=== PATIENT | male | born 1940 | race Caucasian/White ===

== ENCOUNTER 2021-03-07 11:08 | Emergency (ER) | payer OTHER ==
--- OUTSIDE RECORDS SUMMARY | 2021-03-07 11:12 | XMS REPORT | Continuity of Care Document ---
:1940 Author Organization [facility] t Address [address] [place] [address] Dr. [address] [place] [address] Care Team Providers Name Role Phone Rajiv BHARDWAJ, Fredrick Primary Care Physician DARYN DUKE Attending Clinician Unavailable Therapist, Respiratory Attending Clinician Unavailable Duke Duckworth MD Attending Clinician Duke DUCKWORTH Attending Clinician Unavailable Only, Test Attending Clinician Unavailable Apple BHARDWAJ Attending Clinician APPLE Attending Clinician Unavailable Doctor Unassigned, Name Attending Clinician Unavailable Rajiv BHARDWAJ, Fredrick Attending Clinician Pcp, Does Not Have A Attending Clinician Dominic BHARDWAJ Attending Clinician Daryn Duke MD Attending Clinician Pob, Lab Main Attending Clinician Unavailable VIVIANE Attending Clinician Unavailable IVANNA Attending Clinician Unavailable MD SAHARA GONCALVES Attending Clinician Unavailable DARYN DUKE Admitting Clinician Unavailable Daryn Duke MD Admitting Clinician IVANNA Admitting Clinician Unavailable MD SAHARA GONCALVES Admitting Clinician Unavailable Payers Payer Name Policy Type Policy Number Effective Date Expiration Date S cristian [facility] MEDICARE [id number] 2012 ERS 00:00:00 Problems This patient has no known problems. Allergies, Adverse Reactions, Alerts Allergy Allergy Status Severity Reaction(s) Onset Inactive Treating Comm ents Source Name Type Date Date Clinician NO KNOWN Drug Active Univers ALLERGIE Class ity of S [facility] Social History Social Habit Start Date Stop Date Quantity Comments Source Exposure to Not sure University of SARS-CoV-2 [place] [facility] (event) Branch Tobacco use and 2019-11-10 2019-11-10 Never used Universit y of exposure 00:00:00 00:00:00 [facility] Tobacco Comment 2019-11-10 2019-11-10 Quit 40 years Univer sity of 00:00:00 00:00:00 ago [facility] Sex Assigned At [birth year] Universit y of 00:00:00 00:00:00 [facility] Smoking Status Start Date Stop Date Source Former smoker 2019-11-10 00:00:00 2019-11-10 00:00:00 Universi ty [facility] Medications Ordered Filled Start Stop Current Ordering Indication Dosage Frequency Signature Comments Components Source Medication Medication Date Date Medication? Clinician (SIG) Name Name rivaroxaban 2019-02 Yes 20mg Take 20 mg Univers (XARELTO) 2-24 by mouth. ity o f 20 mg 10:12: [place] tablet 09 Medical Branch atorvastati 2019-02 Yes 40mg Take 40 mg Univers n (LIPITOR) 2-24 by mouth ity of 40 mg 10:12: at [place] tablet 09 bedtime. Medical Branch tamsulosin 2019-02 Yes .4mg Take 0.4 Uni vers (FLOMAX) 2-24 mg by ity of 0.4 mg 24 10:12: mouth [place] hr capsule 09 daily. Medical Branch finasteride 2019-02 Yes 5mg Take 5 mg U nivers (PROSCAR) 5 2-24 by mouth ity of mg tablet 10:12: daily. [place] 09 Medical Branch fluticasone 2019-02 Yes 1{spray Use 1 Un daniel 50 2-24 } Arpin in ity of mcg/actuati 10:12: each [place] on nasal 09 nostril Medical spray daily. Branch apixaban 2019-02 Yes 5mg Take 5 mg Univ ers (ELIQUIS) 5 2-24 by mouth 2 it y of mg tablet 10:12: (two) [place] 09 times Medical daily. Branch amiodarone 2019-02 Yes 100mg Take 100 Un daniel HCl 2-24 mg by ity of (AMIODARONE 10:12: mouth [place] ORAL) 09 daily. Medical Branch atorvastati 2019-02 Yes 40mg Take 40 mg Univers n (LIPITOR) 2-24 by mouth ity of 40 mg 10:12: at [place] tablet 09 bedtime. Medical Branch lisinopril 2019-02 Yes 40mg Take 40 mg U nivers (PRINIVIL,Z 2-24 by mouth ity of ESTRIL) 40 10:12: daily. [place] mg tablet 09 Medical Branch omeprazole 2019-02 Yes 20mg Take 20 mg U nivers (PRILOSEC) 2-24 by mouth ity o f 20 mg 10:12: daily. [place] capsule 09 Medical Branch loratadine 2019-02 Yes Take by Uni vers (CLARITIN 2-24 mouth. ity of LIQUI-GEL) 10:12: [place] 10 mg 09 Medical capsule Branch sotalol 2019-02 Yes 80mg Take 80 mg Univ ers (BETAPACE) 2-24 by mouth ity o f 80 mg 10:12: every 12 [place] tablet 09 (twelve) Medical hours. Branch rivaroxaban 2019-02 Yes 20mg Take 20 mg Univers (XARELTO) 2-24 by mouth. ity o f 20 mg 10:12: [place] tablet 09 Medical Branch atorvastati 2019-02 Yes 40mg Take 40 mg Univers n (LIPITOR) 2-24 by mouth ity of 40 mg 10:12: at [place] tablet 09 bedtime. Medical Branch tamsulosin 2019-02 Yes .4mg Take 0.4 Uni vers (FLOMAX) 2-24 mg by ity of 0.4 mg 24 10:12: mouth [place] hr capsule 09 daily. Medical Branch finasteride 2019-02 Yes 5mg Take 5 mg U nivers (PROSCAR) 5 2-24 by mouth ity of mg tablet 10:12: daily. [place] 09 Medical Branch tamsulosin 2019-02 Yes .4mg Take 0.4 Uni vers (FLOMAX) 2-24 mg by ity of 0.4 mg 24 10:12: mouth [place] hr capsule 09 daily. Medical Branch fluticasone 2019- Yes 1{spray Use 1 Un daniel 50 2-24 } Arpin in ity of mcg/actuati 10:12: each [place] on nasal 09 nostril Medical spray daily. Branch apixaban 2019-02 Yes 5mg Take 5 mg Univ ers (ELIQUIS) 5 2-24 by mouth 2 it y of mg tablet 10:12: (two) [place] 09 times Medical daily. Branch amiodarone 2019-02 Yes 100mg Take 100 Un daniel HCl 2-24 mg by ity of (AMIODARONE 10:12: mouth [place] ORAL) 09 daily. Medical Branch finasteride 2019-02 Yes 5mg Take 5 mg U nivers (PROSCAR) 5 2-24 by mouth ity of mg tablet 10:12: daily. Medical Branch lisinopril 2019-02 Yes 40mg Take 40 mg U nivers (PRINIVIL,Z 2-24 by mouth ity of ESTRIL) 40 10:12: daily. [place] mg tablet 09 Medical Branch omeprazole 2019-02 Yes 20mg Take 20 mg U nivers (PRILOSEC) 2-24 by mouth ity o f 20 mg 10:12: daily. [place] capsule 09 Medical Branch loratadine 2019-02 Yes Take by Uni vers (CLARITIN 2-24 mouth. ity of LIQUI-GEL) 10:12: [place] 10 mg 09 Medical capsule Branch sotalol 2019-02 Yes 80mg Take 80 mg Univ ers (BETAPACE) 2-24 by mouth ity o f 80 mg 10:12: every 12 [place] tablet 09 (twelve) Medical hours. Branch rivaroxaban 2019-02 Yes 20mg Take 20 mg Univers (XARELTO) 2-24 by mouth. ity o f 20 mg 10:12: [place] tablet 09 Medical Branch atorvastati 2019-02 Yes 40mg Take 40 mg Univers n (LIPITOR) 2-24 by mouth ity of 40 mg 10:12: at [place] tablet 09 bedtime. Medical Branch tamsulosin 2019-02 Yes .4mg Take 0.4 Uni vers (FLOMAX) 2-24 mg by ity of 0.4 mg 24 10:12: mouth [place] hr capsule 09 daily. Medical Branch finasteride 2019-02 Yes 5mg Take 5 mg U nivers (PROSCAR) 5 2-24 by mouth ity of mg tablet 10:12: daily. Medical Branch fluticasone 2019-02 Yes 1{spray Use 1 Un daniel 50 2-24 } Arpin in ity of mcg/actuati 10:12: each [place] on nasal 09 nostril Medical spray daily. Branch fluticasone 2019-02 Yes 1{spray Use 1 Un daniel 50 2-24 } [place] in ity of mcg/actuati 10:12: each [place] on nasal 09 nostril Medical spray daily. Branch apixaban 2019- Yes 5mg Take 5 mg Univ ers (ELIQUIS) 5 2-24 by mouth 2 it y of mg tablet 10:12: (two) [place] 09 times Medical daily. Branch amiodarone 2019-02 Yes 100mg Take 100 Un daniel HCl 2-24 mg by ity of (AMIODARONE 10:12: mouth [place] ORAL) 09 daily. Medical Branch apixaban 2019-02 Yes 5mg Take 5 mg Univ ers (ELIQUIS) 5 2-24 by mouth 2 it y of mg tablet 10:12: (two) [place] times Medical daily. Branch amiodarone 2019-02 Yes 100mg Take 100 Un daniel HCl 2-24 mg by ity of (AMIODARONE 10:12: mouth [place] ORAL) 09 daily. Medical Branch lisinopril 2019-02 Yes 40mg Take 40 mg U nivers (PRINIVIL,Z 2-24 by mouth ity of ESTRIL) 40 10:12: daily. [place] mg tablet Medical Branch omeprazole 2019-02 Yes 20mg Take 20 mg U nivers (PRILOSEC) 2-24 by mouth ity o f 20 mg 10:12: daily. [place] capsule Medical Branch lisinopril 2019-02 Yes 40mg Take 40 mg U nivers (PRINIVIL,Z 2-24 by mouth ity of ESTRIL) 40 10:12: daily. [place] mg tablet 09 Medical Branch omeprazole 2019- Yes 20mg Take 20 mg U nivers (PRILOSEC) 2-24 by mouth ity o f 20 mg 10:12: daily. [place] capsule 09 Medical Branch loratadine 2019- Yes Take by Uni vers (CLARITIN 2-24 mouth. ity of LIQUI-GEL) 10:12: [place] 10 mg 09 Medical capsule Branch sotalol 2019- Yes 80mg Take 80 mg Univ ers (BETAPACE) 2-24 by mouth ity o f 80 mg 10:12: every 12 [place] tablet 09 (twelve) Medical hours. Branch rivaroxaban 2019- Yes 20mg Take 20 mg Univers (XARELTO) 2-24 by mouth. ity o f 20 mg 10:12: [place] tablet 09 Medical Branch loratadine 2019- Yes Take by Uni vers (CLARITIN 2-24 mouth. ity of LIQUI-GEL) 10:12: [place] 10 mg 09 Medical capsule Branch atorvastati 2019-02 Yes 40mg Take 40 mg Univers n (LIPITOR) 2-24 by mouth ity of 40 mg 10:12: at [place] tablet 09 bedtime. Medical Branch tamsulosin 2019-02 Yes .4mg Take 0.4 Uni vers (FLOMAX) 2-24 mg by ity of 0.4 mg 24 10:12: mouth [place] hr capsule 09 daily. Medical Branch finasteride 2019-02 Yes 5mg Take 5 mg U nivers (PROSCAR) 5 2-24 by mouth ity of mg tablet 10:12: daily. [place] 09 Medical Branch fluticasone 2019- Yes 1{spray Use 1 Un daniel 50 2-24 } Arpin in ity of mcg/actuati 10:12: each [place] on nasal 09 nostril Medical spray daily. Branch apixaban 2019-02 Yes 5mg Take 5 mg Univ ers (ELIQUIS) 5 2-24 by mouth 2 it y of mg tablet 10:12: (two) [place] 09 times Medical daily. Branch amiodarone 2019-02 Yes 100mg Take 100 Un daniel HCl 2-24 mg by ity of (AMIODARONE 10:12: mouth [place] ORAL) 09 daily. Medical Branch sotalol 2019-02 Yes 80mg Take 80 mg Univ ers (BETAPACE) 2-24 by mouth ity o f 80 mg 10:12: every 12 [place] tablet 09 (twelve) Medical hours. Branch lisinopril 2019-02 Yes 40mg Take 40 mg U nivers (PRINIVIL,Z 2-24 by mouth ity of ESTRIL) 40 10:12: daily. [place] mg tablet 09 Medical Branch omeprazole 2019-02 Yes 20mg Take 20 mg U nivers (PRILOSEC) 2-24 by mouth ity o f 20 mg 10:12: daily. [place] capsule 09 Medical Branch loratadine 2019-02 Yes Take by Uni vers (CLARITIN 2-24 mouth. ity of LIQUI-GEL) 10:12: [place] 10 mg 09 Medical capsule Branch sotalol 2019-02 Yes 80mg Take 80 mg Univ ers (BETAPACE) 2-24 by mouth ity o f 80 mg 10:12: every 12 [place] tablet 09 (twelve) Medical hours. Branch rivaroxaban 2019-02 Yes 20mg Take 20 mg Univers (XARELTO) 2-24 by mouth. ity o f 20 mg 10:12: [place] tablet 09 Medical Branch cyclobenzap 2016-0 Yes 5mg Take 1 Tab Univers rine 3-26 by mouth 3 ity of (FLEXERIL) 00:00: (three) [place] 5 [place] tablet 00 times Medical daily. Branch traMADOL 2015-0 Yes 50mg Take 1 Tab Uni vers (ULTRAM) 50 3-26 by mouth ity of mg tablet 00:00: every 6 [place] 00 (six) Medical hours as Branch needed for Pain (scale 4-6). John Child PA-C / Neville Hooker MD MAKAYLA# [id number] DPS# [id number] x Lic.# [id number] NPI# [id number] cyclobenzap 2016-0 Yes 5mg Take 1 Tab Univers rine 3-26 by mouth 3 ity of (FLEXERIL) 00:00: (three[place] 5 [place] tablet 00 times Medical daily. Branch traMADOL 2016-0 Yes 50mg Take 1 Tab Uni vers (ULTRAM) 50 3-26 by mouth ity of mg tablet 00:00: every 6 [place] 00 (six) Medical hours as Branch needed for Pain (scale 4-6). John Child PA-C / Neville Hooker MD MAKAYLA# [id number] DPS# [id number] x Lic.# [id number] NPI# [id number] cyclobenzap 2016-0 Yes 5mg Take 1 Tab Univers rine 3-26 by mouth 3 ity of (FLEXERIL) 00:00: (three) [place] 5 [place] tablet 00 times Medical daily. Branch traMADOL 2016-0 Yes 50mg Take 1 Tab Uni vers (ULTRAM) 50 3-26 by mouth ity of mg tablet 00:00: every 6 [place] 00 (six) Medical hours as Branch needed for Pain (scale 4-6). John Child PA-C / Neville Hooker MD MAKAYLA# [id number] DPS# [id number] x Lic.# [id number] NPI# [id number] cyclobenzap 2016-0 Yes 5mg Take 1 Tab Univers rine 3-26 by mouth 3 ity of (FLEXERIL) 00:00: (three[place] 5 [place] tablet 00 times Medical daily. Branch traMADOL 2016-0 Yes 50mg Take 1 Tab Uni vers (ULTRAM) 50 3-26 by mouth ity of mg tablet 00:00: every 6 [place] [address] (six) Medical hours as Branch needed for Pain (scale 4-6). John Child PA-C / Neville Hooker MD MAKAYLA# [id number] DPS# [id number] x Lic.# [id number] NPI# [id number] cyclobenzap 2016-0 Yes 5mg Take 1 Tab Univers rine 3-26 by mouth 3 ity of (FLEXERIL) 00:00: (three[place] 5 [place] tablet 00 times Medical daily. Branch traMADOL 2016-0 Yes 50mg Take 1 Tab Uni vers (ULTRAM) 50 3-26 by mouth ity of mg tablet 00:00: every 6 [place] [address] (six) Medical hours as Branch needed for Pain (scale 4-6). John Child PA-C / Neville Hooker MD MAKAYLA# [id number] DPS# [id number] x Lic.# [id number] NPI# [id number] Procedures Procedure Date / Time Performed Performing Clinician [facility] e ASSIGNMENT OF BENEFITS 2021-01-06 15:41:01 Doctor Unassigned, No [facility] Encounters Start End Encounter Admission Attending Care Care Encounter Source Date/Time Date/Time Type Type Clinicians Facility Department ID 2020-12-04 Emergency [facility] [id number] Univers 13:06:08 ity [facility] 2020-12-03 Outpatient R SEBASTIAN, [facility] BRAD [id number] Univers 23:09:28 SOL [facility] 2020-12-03 Outpatient SEBASTIAN, [facility] [id number] Univers 18:39:34 SOL [facility] 2021-01-10 2021-01-10 Core Cleaner Therapist, Murphy Respiratory [facility] 1.2.840.114 [id number] Univers 12:31:22 14:01:22 Visit Rohit Duckworth 350.1.13. 10 ity of [place] [id number] [facility] [id number] [facility] 083 Branch 2021-01-10 2021-01-10 Outpatient R GUCCI [facility] [id number] Univers 12:30:00 12:30:00 ROHIT ity [facility] 2021-01-10 2021-01-10 Outpatient R [facility] [id number] Univers 12:30:00 12:30:00 [id number] ity [facility] 2021-01-06 2021-01-06 Laboratory Only, Adc Test [facility] 1.2.840. [id number] Univers 09:40:01 09:55:01 Only Sol Bullock [id number] ity of [place] [id number] [facility] [id number] [facility] 353 Branch 2021-01-06 2021-01-06 Outpatient R [facility] [id number] Univers 09:30:00 09:30:00 [id number] ity [facility] 2021-01-06 2021-01-06 [id number] Univers 09:30:00 09:30:00 SOL [facility] 2021-01-06 2021-01-06 Orders Doctor NOLA [id number] [id number] Univers 00:00:00 00:00:00 Only Unassigned, ROGELIO [id number] ity of [place] [facility] 4.2.7.2.686 Lenin as [phone] [facility] 009 Branch 2020-12-23 2020-12-23 Telephone [facility] 1.2.840.114 [id number] Univers 00:00:00 00:00:00 Wondiful A LUCY [id number] ity [place] 4[place].2.686 [place] [id number] Ak dical NAL 085 [facility] 2020-10-27 2020-10-27 Telephone Eduardo [facility] [id number] Univers 00:00:00 00:00:00 Patient Lucy [id number] i ty of Does Not [place] 4.2.7.2.686 [place] as Have A Professio [id number] Ak dical [address] 2020-01-29 2020-01-29 Emergency [facility] [id number] 09:43:00 12:01:00 Raj Valderrama 350.1.13.10 [place] [id number] [place] [id number] 2019-11-27 2019-11-27 [facility] 1.2.840.114 [id number] 07:45:00 10:36:00 Encounter Sol Valderrama [id number] Daryn Braden [id number] Surgical [id number] [place] [address] 2019-11-26 2019-11-26 Outpatient R [facility] [id number] [facility] 15:30:00 15:30:[id number] [place] [address] 2019-11-26 2019-11-26 Outpatient R [facility] [id number] [facility] 15:30:00 15:30:00 [facility] 2019-11-26 2019-11-26 Laboratory Only, [facility] 1.2.840.114 [id number] 09:42:34 09:57:34 Only Test Lucy 350.1.13.10 [place] 4.2.7.2.686 [place] [id number] 2019-11-13 2019-11-13 [facility] 1.2.840.114 [id number] 07:14:00 09:30:00 Encounter Sol Valderrama 350.1.13.10 Daryn Braden 4.2.7.2.686 Surgical [id number] [place] 07 2019-11-12 2019-11-12 Laboratory Only, [facility] 1.2.840.114 [id number] 09:36:07 09:51:07 Only Test Lucy 350.1.13.10 [place] 4.2.7.2.686 [place] [id number] 2019-11-12 2019-11-12 Outpatient R [facility] [id number] Univers 09:30:00 09:30:00 [facility] 2019-11-12 2019-11-12 Outpatient R SEBASTIAN [facility] [id number] Univers 09:30:00 09:30:00 SOL lino [facility] 2019-11-12 2019-11-12 Orders Doctor NOL[place] 1.2.840.114 [id number] 00:00:00 00:00:00 Only Unassigned, ROGELIO 350.1.13.10 [place] [facility] 4.2.7.2.686 [id number] 2019-11-04 2019-11-04 Core Cleaner Murphy Jang [facility] 1.2.840.114 [id number] 14:58:40 15:13:40 Visit Lab Main Lucy 350.1.13.10 [place] 4.2.7.2.686 [place] [id number] [address] 2019-11-04 2019-11-04 Outpatient R [facility] [id number] Univers 15:00:00 15:00:00 [id number] [facility] 2019-11-04 2019-11-04 Outpatient R SEBASTIAN [facility] [id number] Univers 15:00:00 15:00:00 SOL [facility] 2019-11-04 2019-11-04 Orders Doctor NOLA [place].2.840.114 [id number] 00:00:00 00:00:00 Only Unassigned, ROGELIO 350.1.13.10 [place] [id number] 2019-09-16 2019-09-16 Outpatient R [facility] [id number] Univers 12:30:00 12:30:00 [id number] [facility] 2019-09-16 2019-09-16 [facility] [id number] Univers 12:30:00 12:30:[address] [place] o f [facility] 2019-09-16 2019-09-16 Orders Doctor NOLA Shearer2.840.114 [id number] 00:00:00 00:00:00 Only Unassigned, ROGELIO 350.1.13.10 [place] [facility] 4.2.7.2.686 [id number] 2019-09-01 2019-09-01 Outpatient [facility]HI [facility] [id number] [place] 00:00:00 00:00:[address] 2019-08-28 2019-08-28 Outpatient CHICHI GONCALVES [facility] [id number] [place] 00:00:00 00:00:[address] Results Test Description Test Time Test Comments Results Result Comments Source SARS-CoV-2 (COVID-19) RNA [Presence] in Respiratory sp ecimen by 2019-08-28 21:28:08 FANI with probe detection Test Item Value Reference Range Interpretation Comme nts SARS-CoV-2 (COVID-19) RNA [Presence] in Respiratory Not detected No t-Detected specimen by FANI with probe detection (test code = 66567-0)
[2021-03-07] MEDS ORDERED: GLUCAGON 1 MG/VIAL ONE ×2 (13:39→15:24)
[2021-03-07] MEDS ORDERED: ONDANSETRON 4 MG/2 ML VIAL ONE (13:39)
[2021-03-07 13:49] LABS: Absolute Lymphocytes (CBC) 1.3 K/uL (0.7-4.9); Hematocrit 45.3 % (39.6-49.0); Lymphocytes % 13.6 % (15.3-44.8); MPV 8.2 fL (7.6-11.3); RBC Red Blood Cell Count 5.17 M/uL (4.33-5.43)
[2021-03-07 14:10] LABS: Potassium 4.1 mmol/L (3.5-5.1)
--- NOTE | 2021-03-07 16:16 | ER ---
Nurse's Notes [facility] Name: Rashaun Herrera Age: 80 yrs Sex: Male : 1940 Arrival Date: 03/07/2021 Time: 11:12 Bed 27 Private MD: Diagnosis: Foreign body in esophagus Presentation: 03/07 12:17 Chief complaint: Patient states: poss has a piece of meat stuck in his throat last [facility] night after dinner. no sob and able to speak in complete sentences. Coronavirus screen: Vaccine status: Patient reports being unvaccinated. Ebola Screen: Patient denies travel to an Ebola-affected area in the 21 days before illness onset. Initial Sepsis Screen: Does the patient meet any 2 criteria? No. Patient's initial sepsis screen is negative. Does the patient have a suspected source of infection? No. Patient's initial sepsis screen is negative. Risk Assessment: Do you want to hurt yourself or someone else? Patient reports no desire to harm self or others. Onset of symptoms was March 06, 2021. 12:17 Method Of Arrival: Ambulatory [facility] 12:17 Acuity: ALBERTO 3 [facility] Triage Assessment: 12:21 General: Appears in no apparent distress. Behavior is calm, cooperative. Pain: Pain [facility] currently is 3 out of 10 on a pain scale. GI: Reports something stuck in throat. Historical: - Allergies: 12:19 No Known Allergies; [facility] [place] Meds: 12:19 atorvastatin 40 mg Oral tab 1 tab once daily [Active]; finasteride 5 mg Oral tab 1 tab [facility] once daily [Active]; lisinopril 40 mg Oral tab 1 tab once daily [Active]; Xarelto 20 mg Oral tab 1 tab once daily [Active]; Vitamin B-12 1,000 mcg Oral tab [Active]; tamsulosin 0.4 mg Oral cp24 1 cap once daily [Active]; omeprazole 20 mg Oral cpDR 1 cap once daily [Active]; multivitamin Oral tab [Active]; Jaycnxzyred-Ubtdzlqwmiw-RZP Complex Oral [Active]; - Immunization history:: Client reports having NOT received the Covid vaccine. - Social history:: Smoking status: Patient/guardian denies using tobacco. Screenin:59 Abuse screen: Denies threats or abuse. Nutritional screening: No deficits noted. [facility] Tuberculosis screening: No symptoms or risk factors identified. Fall Risk None identified. Assessment: 13:46 General: Appears in no apparent distress. comfortable, Behavior is calm, cooperative, ab2 appropriate for age. Pain: Denies pain. Neuro: Level of Consciousness is awake, alert, obeys commands, Oriented to person, place, time, situation, Appropriate for age Can Carrier are equal bilaterally Moves all extremities. Gait is steady, Speech is normal, Facial symmetry appears normal. Cardiovascular: Heart tones S1 S2 present Patient's skin is warm and dry. Respiratory: No deficits noted. Airway is patent Breath sounds are clear bilaterally. Denies shortness of breath. GI: Abdomen is round non-distended, Bowel sounds present X 4 quads. Reports intolerance of fluids, intolerance of food, nausea, vomiting. : No deficits noted. No signs and/or symptoms were reported regarding the genitourinary system. EENT: No deficits noted. No signs and/or symptoms were reported regarding the EENT system. Derm: No deficits noted. No signs and/or symptoms reported regarding the dermatologic system. Musculoskeletal: No deficits noted. No signs and/or symptoms reported regarding the musculoskeletal system. 15:25 Reassessment: Patient appears in no apparent distress at this time. Patient PO ab2 challenged and still coughing. Repeat dose of glucagen given per physician order. 16:22 Reassessment: Patient states he feels that the beef he believe was stuck had passed. Pt ab2 states relief of symptoms. Vital Signs: 12:17 BP 150 / 65; Pulse 76; Resp 18; Temp 97.9; Pulse Ox 100% on R/A; Weight 72.12 kg; [facility] Height 5 ft. 10 in. (177.80 cm); Pain 4/10; 13:47 BP 171 / 70; Pulse 48; Resp 16; Pulse Ox 100% on R/A; Pain 0/10; ab2 15:06 BP 167 / 76; Pulse 46; Resp 16; Pulse Ox 100% on R/A; ab2 16:00 BP 164 / 79; Pulse 49; Resp 16; Pulse Ox 98% on R/A; Pain 0/10; ab2 12:17 Body Mass Index 22.81 (72.12 kg, 177.80 cm) [facility] ED Course: 11:12 Patient arrived in ED. as 11:58 Triage completed. jh6 12:22 Arm band placed on right wrist. jh6 13:15 Davonte Paulino is Primary Nurse. ab2 13:18 Lil[facility] Newell [facility]C [facility] kb 13:18 Danish Hannon MD is Attending Physician. kb 13:35 Inserted saline lock: 20 gauge in right antecubital area, using aseptic technique. ab2 13:36 Basic Metabolic Panel Sent. ab2 13:36 CBC with Diff Sent. ab2 16:20 No provider procedures requiring assistance completed. IV discontinued, intact, ab2 bleeding controlled, No redness/swelling at site. Pressure dressing applied. Administered Medications: 13:45 Drug: Zofran (Ondansetron) 4 mg Route: IVP; Site: right forearm; ab2 13:46 Drug: GlucaGen (glucagon) 1 mg Route: IVP; Site: right forearm; ab2 15:25 Drug: GlucaGen (glucagon) 1 mg Route: IVP; Site: left antecubital; ab2 Outcome: 16:15 Discharge ordered by MD. kb 16:20 Discharged to home ambulatory. ab2 16:20 Condition: good 16:20 Discharge instructions given to patient, Instructed on discharge instructions, follow up and referral plans. Demonstrated understanding of instructions, follow-up care. 16:23 Patient left the ED. ab2 Signatures: Liliana Newell FNP-C FNP-Wandy Ortiz Jennifer RN RN jh6 Davonte Paulino ab2 Corrections: (The following items were deleted from the chart) 12:05 11:56 Chief complaint: Patient states: lower back pain that started 4 days ago is now jh6 making bp elevated. reports no injury and states that she has been taking her HTN meds. 6 12:05 11:56 Ebola Screen: Patient negative for fever greater than or equal to 101.5 degrees jh6 Fahrenheit, and additional compatible Ebola Virus Disease symptoms 6 12:05 11:56 Initial Sepsis Screen: Does the patient meet any 2 criteria? No. Patient's 6 initial sepsis screen is negative. Does the patient have a suspected source of infection? No. Patient's initial sepsis screen is negative. 6 12:05 11:56 Risk Assessment: Do you want to hurt yourself or someone else? Patient reports no jh6 desire to harm self or others. [facility] 12: 11:56 Onset of symptoms was March 04, 2021 [place] [id number] 12: 11:56 Coronavirus screen: Vaccine status: Patient reports receiving the 2nd dose of the [facility] covid vaccine. [facility] 12: 11:56 Method Of Arrival: Ambulatory [place] [id number] 12: 11:56 Acuity: ALBERTO 4 [place] [id number] 12: 11:56 BP 154 / 80; Pulse 79bpm; Resp 17bpm; Pulse Ox 100%; Temp 97.6F; 90.72 kg; Height [facility] 5 ft. 5 in.; BMI: 33.2; Pain 6/10; [facility] 12:05 11:58 Allergies: No Known Allergies; [place] [id number] 12: 11:58 PMHx: Aneurysm; [place] [address] 12: 11:58 PMHx: Atrial Fib; [place] [address] 12:05 11:58 PMHx: brain aneurysm; [place] [id number] 12:05 11:58 PMHx: Hypertension; [place] [address] 12: 11:58 Immunization history: Client reports receiving the 2nd dose of the Covid vaccine, [place] [address] 12: 11:58 Social history: Smoking status: Patient denies any tobacco usage or history of. [place] [id number] 12:05 11:59 Arm band placed on left wrist. [place] [id number] 12:05 11:59 General: Appears in no apparent distress. comfortable, Behavior is calm, [facility] cooperative, [facility] 12:05 11:59 Pain: Complains of pain in lumbar area, left low back and right low back [place] [address] 12: 11:59 GI: No deficits noted. [place] [id number]
--- NOTE | 2021-03-07 16:16 | EDPHYS ---
Physician Documentation [facility] Name: Rashaun Herrera Age: 80 yrs Sex: Male : 1940 Arrival Date: 03/07/2021 Time: 11:12 Bed 27 Private MD: ED Physician Danish Hannon HPI: 03/07 16:05 This 80 yrs old Male presents to ER via Ambulatory with complaints of Vomiting. kb 16:03 Pt states he sometimes gets food stuck in his esophagus. States he ate some steak last kb night and a piece got stuck. States he vomited every 15 minutes after that until he went to sleep. Woke up and tried to have breakfast, but began vomiting again. States he still feels like something is stuck. Pt spitting into bag. 16:05 The patient presents to the emergency department with vomiting. Onset: The kb symptoms/episode began/occurred last night. Possible causes: unknown. The symptoms are aggravated by nothing. The symptoms are alleviated by nothing. Associated signs and symptoms: Pertinent positives: vomiting, fb sensation. Severity of symptoms: At their worst the symptoms were mild in the emergency department the symptoms are unchanged. The patient has experienced similar episodes in the past, a few times. The patient has not recently seen a physician. Historical: - Allergies: 12:19 No Known Allergies; [facility] [place] Meds: 12:19 atorvastatin 40 mg Oral tab 1 tab once daily [Active]; finasteride 5 mg Oral tab 1 tab jh6 once daily [Active]; lisinopril 40 mg Oral tab 1 tab once daily [Active]; Xarelto 20 mg Oral tab 1 tab once daily [Active]; Vitamin B-12 1,000 mcg Oral tab [Active]; tamsulosin 0.4 mg Oral cp24 1 cap once daily [Active]; omeprazole 20 mg Oral cpDR 1 cap once daily [Active]; multivitamin Oral tab [Active]; Bbtcrfxytyi-Gzfbwgwddfb-KVU Complex Oral [Active]; - Immunization history:: Client reports having NOT received the Covid vaccine. - Social history:: Smoking status: Patient/guardian denies using tobacco. ROS: 16:02 Constitutional: Negative for fever, chills, and weight loss. kb 16:02 ENT: Positive for foreign body sensation. 16:02 Abdomen/GI: Positive for vomiting, Negative for abdominal pain. 16:02 All other systems are negative. Exam: 16:03 Constitutional: This is a well developed, well nourished patient who is awake, alert, kb and in no acute distress. Head/Face: Normocephalic, atraumatic. ENT: Moist Mucous membranes Cardiovascular: Regular rate and rhythm with a normal S1 and S2. No gallops, murmurs, or rubs. No pulse deficits. Respiratory: Respirations even and unlabored. No increased work of breathing. Talking in full sentences Abdomen/GI: Soft, non-tender. No distention Skin: Warm, dry with normal turgor. Normal color. MS/ Extremity: Pulses equal, no cyanosis. Neurovascular intact. Full, normal range of motion. Neuro: Awake and alert, GCS 15, oriented to person, place, time, and situation. Moves all extremities. Normal gait. Psych: Awake, alert, with orientation to person, place and time. Behavior, mood, and affect are within normal limits. Vital Signs: 12:17 BP 150 / 65; Pulse 76; Resp 18; Temp 97.9; Pulse Ox 100% on R/A; Weight 72.12 kg; 6 Height 5 ft. 10 in. (177.80 cm); Pain 4/10; 13:47 BP 171 / 70; Pulse 48; Resp 16; Pulse Ox 100% on R/A; Pain 0/10; ab2 15:06 BP 167 / 76; Pulse 46; Resp 16; Pulse Ox 100% on R/A; ab2 16:00 BP 164 / 79; Pulse 49; Resp 16; Pulse Ox 98% on R/A; Pain 0/10; ab2 12:17 Body Mass Index 22.81 (72.12 kg, 177.80 cm) [facility] MDM: 13:18 Patient medically screened. kb 16:02 Data reviewed: vital signs, nurses notes. Data interpreted: Pulse oximetry: on room air kb is 98 %. Interpretation: normal. 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 ED course: Pt states he feels like the piece of meat went down. States he is feeling much better. . 03/07 13:24 Order name: CBC with Diff; Complete Time: 14:11 kb 03/07 13:24 Order name: Basic Metabolic Panel; Complete Time: 14:11 kb 03/07 13:24 Order name: IV Start; Complete Time: 13:36 kb 03/07 14:30 Order name: PO challenge; Complete Time: 14:56 kb Administered Medications: 13:45 Drug: Zofran (Ondansetron) 4 mg Route: IVP; Site: right forearm; ab2 13:46 Drug: GlucaGen (glucagon) 1 mg Route: IVP; Site: right forearm; ab2 15:25 Drug: GlucaGen (glucagon) 1 mg Route: IVP; Site: left antecubital; ab2 Disposition: 17:49 Co-signature as Attending Physician, Danish Hannon MD. rn Disposition Summary: 03/07/21 16:15 Discharge Ordered Location: Home kb Condition: Stable kb Diagnosis - Foreign body in esophagus kb Followup: kb - With: Emergency Department - When: As needed - Reason: Worsening of condition Followup: kb - With: Private Physician - When: 2 - 3 days - Reason: Recheck today's complaints, Continuance of care, Re-evaluation by your physician Discharge Instructions: - Discharge Summary Sheet kb Forms: - Medication Reconciliation Form kb - Thank You Letter kb - Antibiotic Education kb - Prescription Opioid Use kb Signatures: Dispatcher [employer] EDLiliana Brewer, [place] CABAP-Ckb Danish Hannon MD MD rn Hastedt, Jennifer, RN RN [facility] Davonte Paulino ab2 Corrections: (The following items were deleted from the chart) 12:05 11:58 Allergies: No Known Allergies; [place] [address] 12:05 11:58 PMHx: Aneurysm; [place] [address] 12:05 11:58 PMHx: Atrial Fib; [place] [address] 12:05 11:58 PMHx: brain aneurysm; [place] [address] 12:05 11:58 PMHx: Hypertension; [place] [address] 12:05 11:58 Immunization history: Client reports receiving the 2nd dose of the Covid vaccine, [place] [address] 12:05 11:58 Social history: Smoking status: Patient denies any tobacco usage or history of. jh6 jh6
[2021-03-07 16:44] VITALS: TEMP 97.9
[2021-03-07 16:47] VITALS: BP 164/79; O2SAT 98
== END 2021-03-07 16:23 | disposition home or self-care (01) ==
LOC: ER 11:08
DX: T18.128A Food in esophagus causing other injury, initial encounter (principal)
CPT/HCPCS: 85025; 80048; 36415; 99284; J1610 ×2; J2405